=== PATIENT | male | born 2005 | race Caucasian/White ===

== ENCOUNTER 2023-05-31 13:52 | Emergency (ER) | payer OTHER, SELFPAY ==
[2023-05-31 13:55] VITALS: BP 135/79; PULSE 94; RESP 18; TEMP 36.6; O2SAT 99
--- NOTE | 2023-05-31 14:09 | ED.GENADULT ---
HPI - General Adult General Chief complaint: Recheck/Abnormal Lab/Rx Stated complaint: needs betty removed Time Seen by Provider: 05/31/23 14:02 Source: patient Mode of arrival: ambulatory Limitations: no limitations History of Present Illness HPI narrative: This is a 17-year-old male who presents to the ED for staple removal. He had the betty placed over 1 week ago. Denies any further problems at the wound site. Related Data Allergies Allergy/AdvReac Type Severity Reaction Status Date / Time No Known Allergies Allergy Verified 05/31/23 13:57 Review of Systems Review of Systems: All systems as dictated in HPI Exam Narrative: GENERAL: Well-appearing, well-nourished, and in no acute distress. HEAD: Normocephalic, atraumatic. MSK: Normal range of motion. No edema. SKIN: [address] in the left occipital scalp. Wound site looks well-healed. PSYCH: Normal mood and affect. Course Vital Signs Vital signs: Vital Signs Temperature 97.9 F 05/31/23 13:55 Pulse Rate 94 05/31/23 13:55 Respiratory Rate 18 05/31/23 13:55 Blood Pressure 135/79 05/31/23 13:55 Pulse Oximetry 99 05/31/23 13:55 Temperature 97.9 F 05/31/23 13:55 Pulse Rate 94 05/31/23 13:55 Respiratory Rate 18 05/31/23 13:55 Blood Pressure 135/79 05/31/23 13:55 Pulse Oximetry 99 05/31/23 13:55 Medical Decision Making MDM Narrative Medical decision making narrative: This is a 17-year-old male who presents to the ED for staple removal. He has had betty in place for 10 days ago. Vitals are stable. Exam shows a well-healed wound site with [address] They were removed by myself. Pt will be discharged in stable condition. Return precautions given and supportive measures discussed. Pt is understanding and agreeable with plan for discharge and follow-up with PCP. Vital Signs Vital Signs: Vital Signs Temperature 97.9 F 05/31/23 13:55 Pulse Rate 94 05/31/23 13:55 Respiratory Rate 18 05/31/23 13:55 Blood Pressure 135/79 05/31/23 13:55 Pulse Oximetry 99 05/31/23 13:55 Temperature 97.9 F 05/31/23 13:55 Pulse Rate 94 05/31/23 13:55 Respiratory Rate 18 05/31/23 13:55 Blood Pressure 135/79 05/31/23 13:55 Pulse Oximetry 99 05/31/23 13:55 Discharge Plan Discharge Clinical Impression: Encounter for removal of betty Patient Disposition: Home, Self-Care Condition: Stable Instructions: Antibiotic Form Additional Instructions: The wound site looked good today. It appears that it is well-healed. Follow-up/Referrals: PHYSICIAN,LOAN REPRESENTATIVE [Primary Care Provider] - Time of Disposition: 14:09
== END 2023-05-31 14:40 | disposition home or self-care (01) ==
LOC: ANHED 14:23
PROVIDERS: Emergency Provider Physician Assistant
DX: Z48.02 Encounter for removal of sutures (principal)
CPT/HCPCS: 15853; 99282